=== PATIENT | female | born 1965 | race Caucasian/White ===

== ENCOUNTER 2020-05-27 09:57 | Inpatient (IN) | payer OTHER ==
[~2020-05-27] VITALS: Ht 160 cm; Wt 104.7 kg
--- NOTE | 2020-05-27 10:19 | NUR ---
EMELI HAYWOOD IN PHARMACY PT TO START AT 10ML/HR HEPARIN AND ORDER ANTIXA FOR 6 HOURS PAST PREVIOUS HOSPITAL START TIME.
[2020-05-27] MEDS ORDERED: SODIUM CHLORIDE FLUSH 10ML SYR IVF ONE (10:30)
--- NOTE | 2020-05-27 10:35 | NUR ---
IN ROOM FOR MONITOR CHECK. PT FOUND WITH A ROOM AIR OF 82% PT PLACED ON 2 LPM O2 VIA NC
--- NOTE | 2020-05-27 10:54 | NUR ---
PT RESTING IN BED AT THIS TIME. VSS WILL CONTINUE TO MONITOR.
[2020-05-27] MEDS ORDERED: HEPARIN 5,000 UNITS/ML, 1ML IV PRN (11:00)
[2020-05-27] MEDS ORDERED: HEPARIN 25,000 UNITS/250ML PMX 250 ML IV PRN (11:00)
[2020-05-27] MEDS ORDERED: HEPARIN 5,000 UNITS/ML, 1ML IV ONE (11:00)
[2020-05-27 11:16] LABS: TROPONIN I 0.511 ng/mL (0.000-0.045)
--- NOTE | 2020-05-27 11:29 | NUR ---
RAPID COVID WAS PERFORMED AT [facility] AND RESULTED NEGATIVE.
[2020-05-27] MEDS ORDERED: INSU100V13 SQ (11:37)
--- NOTE | 2020-05-27 11:37 | NUR ---
HOME MEDS INCLUDE LEVEMIR IN MED REC, ATORVASTATIN, LEVOTHYROXINE, AND ARMOR THYROID FOR WHICH SHE DOES NOT KNOW THE DOSES.
[2020-05-27] MEDS ORDERED: ONDANSETRON ODT 4 MG PO PRN (12:00)
[2020-05-27] MEDS ORDERED: ENALAPRILAT 1.25 MG/ML, 2ML IVPush PRN (12:00)
[2020-05-27] MEDS ORDERED: ONDANSETRON 2MG/ML, 2ML IVPush PRN (12:00)
[2020-05-27] MEDS ORDERED: morphine SULFATE 10 MG/ML, 1ML IVPush PRN (12:00)
[2020-05-27] MEDS ORDERED: DOCUSATE 100 MG CAPSULE PO PRN (12:00)
[2020-05-27] MEDS ORDERED: MELATONIN 5 MG TABLET PO PRN (12:00)
[2020-05-27] MEDS ORDERED: ACETAMINOPHEN 325 MG TABLET PO PRN (12:00)
[2020-05-27] MEDS ORDERED: SODIUM CHLORIDE FLUSH 10ML SYR IVF PRN (12:00)
[2020-05-27 12:32] VITALS: BP 102/63
[2020-05-27 12:33] LABS: TROPONIN I 0.648 ng/mL (0.000-0.045)
[2020-05-27] MEDS ORDERED: VERAPAMIL 2.5 MG/ML, 2ML ONE (12:53)
[2020-05-27] MEDS ORDERED: BIVALIRUDIN 250 MG ONE (12:53)
[2020-05-27] MEDS ORDERED: MIDAZOLAM 1 MG/ML, 5ML ONE (12:53)
[2020-05-27] MEDS ORDERED: HEPARIN 1,000 UNITS/ML, 10ML ONE (12:53)
[2020-05-27] MEDS ORDERED: FENTANYL PF 100 MCG/2ML ONE (12:53)
[2020-05-27] MEDS ORDERED: LIDOCAINE-MPF 1%, 5ML ONE (12:53)
[2020-05-27] MEDS: SODIUM CHLORIDE 0.9% 1,000 ML IV SCH ×4 (13:00→23:00)
[2020-05-27] MEDS ORDERED: ATOR-2 PO (13:26)
[2020-05-27] MEDS ORDERED: LEVO25TA4 PO (13:26)
[2020-05-27] MEDS ORDERED: LISI2.5T PO (13:26)
[2020-05-27] MEDS ORDERED: EMPA10TA PO (13:26)
[2020-05-27] MEDS ORDERED: THYR60TA PO (13:26)
[2020-05-27] MEDS ORDERED: INSU100V34 SQ-INSULIN (13:26)
[2020-05-27 15:20] VITALS: BP 110/67
[2020-05-27] MEDS: INSULIN LISPRO 100 UNITS/ML, PEN SQ-INSULIN SCH ×2 (16:18→21:24)
[2020-05-27 17:57] LABS: TROPONIN I 0.945 ng/mL (0.000-0.045)
[2020-05-27 19:13] VITALS: BP 109/68
[2020-05-27] MEDS ORDERED: ATORVASTATIN 80 MG TABLET PO SCH (21:00)
[2020-05-27] MEDS: INSULIN GLARGINE 100 UNITS/ML, PEN SQ-INSULIN SCH (21:25)
[2020-05-28 01:12] VITALS: BP 106/67
[2020-05-28 04:54] LABS: BASOPHILS % (AUTO) 1 % (0-1); EOSINOPHILS % (AUTO) 2 % (1-7); LYMPHOCYTES % (AUTO) 30 % (22-44); MEAN CORPUSCULAR HEMOGLOBIN 23.8 pg (27.0-34.8); MEAN CORPUSCULAR HGB CONC 30.9 g/dL (32.4-35.8); MEAN PLATELET VOLUME 8.8 fL (7.4-10.4); MONOCYTES % (AUTO) 7 % (2-9); NEUTROPHILS % (AUTO) 61 % (42-75); PLATELET COUNT 299 x10^3/uL (130-400); RED BLOOD COUNT 4.88 x10^6/uL (3.82-5.3); RED CELL DISTRIBUTION WIDTH 22.4 % (9.6-15.2)
[2020-05-28 05:03] LABS: ANION GAP 4 mmol/L (5-15); CALCIUM 8.7 mg/dL (8.5-10.1); CHLORIDE 108 mmol/L (98-107); CREATININE 0.84 mg/dL (0.55-1.02)
[2020-05-28 05:40] LABS: MD SCAN
[2020-05-28] MEDS: SODIUM CHLORIDE 0.9% 1,000 ML IV SCH ×3 (06:00→13:38)
[2020-05-28] MEDS ORDERED: LEVOTHYROXINE 25 MCG TABLET PO SCH (06:00)
[2020-05-28] MEDS ORDERED: THYROID 30 MG TABLET PO SCH (06:00)
[2020-05-28] MEDS: INSULIN LISPRO 100 UNITS/ML, PEN SQ-INSULIN SCH ×2 (07:00→12:01)
[2020-05-28 07:33] VITALS: BP 128/80
[2020-05-28] MEDS: LISINOPRIL 5 MG TABLET PO SCH ×2 (08:29→08:32)
[2020-05-28] MEDS: INSULIN GLARGINE 100 UNITS/ML, PEN SQ-INSULIN SCH (08:30)
[2020-05-28] MEDS ORDERED: ASPIRIN 81 MG TABLET EC PO SCH (09:30)
[2020-05-28] MEDS ORDERED: CLOPIDOGREL 75 MG TABLET PO SCH (10:00)
[2020-05-28 12:15] VITALS: BP 128/84
== END 2020-05-28 14:30 | disposition left against medical advice (07) | DRG 281 ==
LOC: ED 10:33 → EDIP 11:33 → SUATTDRO 11:37 → 5SO 12:26
PROVIDERS: ADMIT Hospitalist; ATTEND Internal Medicine
PROC: 4A023N7 Measurement of Cardiac Sampling and Pressure, Left Heart, Percutaneous Approach (ICD-10-PCS; principal; 2020-05-27)
PROC: B2111ZZ Fluoroscopy of Multiple Coronary Arteries using Low Osmolar Contrast (ICD-10-PCS; 2020-05-27)
PROC: B2151ZZ Fluoroscopy of Left Heart using Low Osmolar Contrast (ICD-10-PCS; 2020-05-27)
DX: I21.A1 Myocardial infarction type 2 (principal); Z68.41 Body mass index [BMI] 40.0-44.9, adult; E03.9 Hypothyroidism, unspecified; E11.65 Type 2 diabetes mellitus with hyperglycemia; E66.9 Obesity, unspecified; E78.00 Pure hypercholesterolemia, unspecified; E78.5 Hyperlipidemia, unspecified; F12.90 Cannabis use, unspecified, uncomplicated; F17.210 Nicotine dependence, cigarettes, uncomplicated; Z53.29 Procedure and treatment not carried out because of patient's decision for other reasons; I10 Essential (primary) hypertension; Z85.41 Personal history of malignant neoplasm of cervix uteri; Z90.710 Acquired absence of both cervix and uterus; Z91.19 Patient's noncompliance with other medical treatment and regimen
CPT/HCPCS: 36415; 80048; 82962; 84484; 85025; 85379; 93005; 93306; 93458; 96374; 99156; C1769; C1894; G0378; J0583; J1644; J2250; J3010; J1815; J2270; Q9967